=== PATIENT | female | born 1955 | race Caucasian/White ===

== ENCOUNTER 2020-08-01 15:15 | Emergency (ER) | payer BC, OTHER ==
[~2020-08-01] VITALS: Ht 182.9 cm; Wt 77.1 kg
--- NOTE | 2020-08-01 16:00 | NUR ---
Patient came in to the er c/o Frequent falls x 1 month. On room air, breathing evenly and unlabored, kept comfortable, will continue to monitor accordingly.
[2020-08-01 18:26] VITALS: BP 140/71
--- NOTE | 2020-08-01 18:27 | NUR ---
Patient discharged to home in stable condition. Written and verbal after care instructions given. Patient verbalizes understanding of instruction.
== END 2020-08-01 18:26 | disposition home or self-care (01) ==
LOC: ER 15:19
DX: S06.0X0A Concussion without loss of consciousness, initial encounter (principal); S00.83XA Contusion of other part of head, initial encounter; M54.2 Cervicalgia; F32.9 Major depressive disorder, single episode, unspecified; I10 Essential (primary) hypertension; E78.5 Hyperlipidemia, unspecified; G89.4 Chronic pain syndrome; M79.7 Fibromyalgia; Z98.890 Other specified postprocedural states; W18.39XA Other fall on same level, initial encounter; Y93.89 Activity, other specified; Y92.89 Other specified places as the place of occurrence of the external cause; Y99.8 Other external cause status
CPT/HCPCS: 70450-TC; 70486-TC; 72125-TC